=== PATIENT | male | born 2005 | race Caucasian/White ===

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

== ENCOUNTER 2023-03-22 22:35 | Emergency (ER) | payer BC, OTHER ==
[~2023-03-22] VITALS: Ht 185.4 cm; Wt 136.1 kg
[2023-03-22 23:09] LABS: Base Excess Venous 1.9 mmol/L; Bicarbonate Venous 24.6 mmol/L (24.0-30.0); PCO2 Venous 47.5 mmHg (38-42); pH Blood Venous 7.37 (7.34-7.37)
[2023-03-22 23:22] LABS: BASOPHILS ABSOLUTE AUTO 0.05 K/mm3 (0.00-0.23); BASOPHILS PERCENT AUTO 1 % (0-2); EOSINOPHILS ABSOLUTE AUTO 0.07 K/mm3 (0.00-0.68); EOSINOPHILS PERCENT AUTO 1 % (0-6); Hematocrit 44.8 % (37.0-53.0); Hemoglobin 15.9 g/dL (13.5-17.5); IMMATURE GRAN ABSOLUTE AUTO 0.02 K/mm3 (0.00-0.10); IMMATURE GRAN PERCENT AUTO 0 % (0-1); LYMPHOCYTES ABSOLUTE AUTO 2.48 K/mm3 (0.84-5.20); LYMPHOCYTES PERCENT AUTO 31 % (21-46); MONOCYTES ABSOLUTE AUTO 0.49 K/mm3 (0.16-1.47); MONOCYTES PERCENT AUTO 6 % (4-13); Mean Corpuscular HGB 28.3 pg (26.0-34.0); Mean Corpuscular HGB Conc 35.5 g/dL (31.5-36.5); Mean Corpuscular Volume 80 fL (80-100); NEUTROPHILS PERCENT AUTO 61 % (41-73); Platelet Count 312 K/mm3 (150-400); RDW Coefficient Variation 13.2 % (11.7-14.2); RDW Standard Deviation 37.5 fL (35.1-46.3); Red Blood Cell Count 5.62 M/mm3 (4.30-5.90); White Blood Cell Count 8.01 K/mm3 (4.00-11.30)
[2023-03-22 23:32] LABS: Albumin/Globulin Ratio 1.1 (0.8-1.8); Bilirubin, Total 0.8 mg/dL (0.1-1.0); Bun/Creatinine Ratio 20.6 (12.0-20.0); Calcium, Blood 9.2 mg/dL (8.5-10.1); Creatinine, Blood 0.78 mg/dL (0.60-1.20); Globulin, Blood 3.8 g/dL (2.2-4.0); Potassium, Blood 3.9 mmol/L (3.5-5.5); Total Protein, Blood 7.8 g/dL (6.4-8.2)
[2023-03-23] MEDS ORDERED: ATOM60 PO (02:08)
[2023-03-23 02:27] LABS: Source, Urine Clean Catch
[2023-03-23 02:40] LABS: Bilirubin, Urine Neg (Neg); Blood, Urine Neg (Neg); Glucose Qualitative, Urine 4+ (Neg); Ketones, Urine 1+ (Neg); Leukocyte Esterase, Urine Neg (Neg); Nitrite, Urine Neg (Neg); Protein, Urine Neg (Neg); Urobilinogen, Urine NORM (Normal)
[2023-03-23 03:06] LABS: Appearance, Urine Clear (Clear); Color, Urine Yellow (P-Yellow)
[2023-03-23] MEDS ORDERED: METF500 PO (03:26)
[2023-03-23 03:30] VITALS: BP 148/94
== END 2023-03-23 03:39 | disposition home or self-care (01) ==
LOC: ER 22:35
PROVIDERS: Emergency Medicine; Student in an Organized Health Care Education/Training Program
DX: E11.9 Type 2 diabetes mellitus without complications (principal); I10 Essential (primary) hypertension; Z79.899 Other long term (current) drug therapy
CPT/HCPCS: 80053; 81003; 82803; 82947; 85025; 99283